=== PATIENT | male | born 1980 | race Caucasian/White ===

== ENCOUNTER 2016-08-22 13:59 | Emergency (ER) | payer OTHER ==
[~2016-08-22] VITALS: Ht 182.9 cm; Wt 77.2 kg
[2016-08-22 14:11] VITALS: BP 104/66; PULSE 69; RESP 18; TEMP 98.7; O2SAT 97
--- NOTE | 2016-08-22 14:31 | PD ---
HPI Chief Complaint: Syncope/Near-Syncope Time Seen by Provider: 14:13 Travel History International Travel<30 days: No Contact w/Intl Traveler<30days: No Traveled to known affect area: No History of Present Illness HPI This is a 36 year old male who presents to the emergency department with syncope. Pt. reports that he ate pizza and on his way to the bathroom the patient felt queasy and passed out, hitting his head and his back, and was unresponsive for 1-2 minutes. After he awoke he seemed confused for 30 minutes per EVAC. Pt. currently feels back to normal except for a severe headache /, throbbing. Pt's father had an aneurysm at 50 years old. Pt. is currently on a road trip from [place]. [facility] Past Medical History Medical History: Denies Significant Hx Past Surgical History Surgical History: No Previous Surgery Social History Alcohol Use: No Tobacco Use: Yes (1 04/14 PPD) Substance Use: No Allergies-Medications (Allergen,Severity, Reaction): Coded Allergies: No Known Allergies (Unverified , 08/22/16) Reported Meds & Prescriptions Reported Meds & Active Scripts Active No Active Prescriptions or Reported Medications Review of Systems Except as stated in HPI: all other systems reviewed are Neg Physical Exam Narrative GENERAL: SKIN: Diaphoretic HEAD: Atraumatic. Normocephalic. EYES: Pupils equal and round. No injection or drainage. ENT: Moist mucous membranes NECK: Trachea midline. CARDIOVASCULAR: Regular rate and rhythm. No murmur appreciated. RESPIRATORY: Clear to auscultation. Breath sounds equal bilaterally. GASTROINTESTINAL: Abdomen soft, non-tender, nondistended. MUSCULOSKELETAL: No obvious deformities. NEUROLOGICAL: Awake and alert. No obvious cranial nerve deficits. No dysarthria or aphasia. No upper or lower extremity drift. No upper extremity ataxia. Visual rey intact. PSYCHIATRIC: Appropriate mood and affect; insight and judgment normal. Data Data Last Documented VS Vital Signs Date Time Temp Pulse Resp B/P Pulse Ox O2 Delivery O2 Flow Rate FiO2 08/22/16 14:15 75 18 97 Room Air 08/22/16 14:11 98.7 104/66 Orders Sodium Chlor 0.9% 1000 Ml Inj (Ns 1000 M (08/22/16 14:45) Complete Blood Count With Diff (08/22/16 14:31) Comprehensive Metabolic Panel (08/22/16 14:31) Electrocardiogram (08/22/16 ) Ct Brain W/O Iv Contrast(Rout) (08/22/16 ) Acetaminophen (Tylenol) (08/22/16 15:00) Labs Laboratory Tests Test 08/22/16 14:40 White Blood Count 7.8 TH/MM3 Red Blood Count 4.66 MIL/MM3 Hemoglobin 13.9 GM/DL Hematocrit 40.6 % Mean Corpuscular Volume 87.1 FL Mean Corpuscular Hemoglobin 29.9 PG Mean Corpuscular Hemoglobin 34.4 % Concent Red Cell Distribution Width 13.4 % Platelet Count 223 TH/MM3 Mean Platelet Volume 8.5 FL Neutrophils (%) (Auto) 66.8 % Lymphocytes (%) (Auto) 25.6 % Monocytes (%) (Auto) 4.9 % Eosinophils (%) (Auto) 2.1 % Basophils (%) (Auto) 0.6 % Neutrophils # (Auto) 5.2 TH/MM3 Lymphocytes # (Auto) 2.0 TH/MM3 Monocytes # (Auto) 0.4 TH/MM3 Eosinophils # (Auto) 0.2 TH/MM3 Basophils # (Auto) 0.0 TH/MM3 CBC Comment DIFF FINAL Differential Comment Sodium Level 139 MEQ/L Potassium Level 3.3 MEQ/L Chloride Level 104 MEQ/L Carbon Dioxide Level 25.8 MEQ/L Anion Gap 9 MEQ/L Blood Urea Nitrogen 18 MG/DL Creatinine 1.14 MG/DL Estimat Glomerular Filtration 73 ML/MIN Rate Random Glucose 143 MG/DL Calcium Level 9.0 MG/DL Total Bilirubin 0.4 MG/DL Aspartate Amino Transf 21 U/L (AST/SGOT) Alanine Aminotransferase 22 U/L (ALT/SGPT) Alkaline Phosphatase 106 U/L Total Protein 7.0 GM/DL Albumin 4.0 GM/DL [facility] Medical Decision Making Medical Screen Exam Complete: Yes Emergency Medical Condition: Yes Interpretation(s) afebrile, no tachycardia, normotensive No leukocytosis Mild hypokalemia CT head: No intracranial hemorrhage Differential Diagnosis Subarachnoid hemorrhage, arrhythmia, electrolyte abnormality, dehydration Narrative Course This is a 36-year-old male who presents to the emergency department having had an episode of syncope following eating pizza. He said he felt like he had to vomit and then he passed out. I suspect he ingested some sort of preformed toxin immediately after eating based on his description of symptoms however the patient did develop a headache after his syncope, and his father had a history of aneurysm. He was placed on a monitor and an IV was established. Labs are reassuring. He has a normal neurologic exam. CT imaging was performed which was reassuring. I think given CT imaging was performed within 2 hours of the onset of the patient's symptoms this is reliable to exclude subarachnoid hemorrhage. I also have a low suspicion for subarachnoid hemorrhage given the patient's onset of headache was following syncope, and his headache is mild. I think patient is safe for discharge. Diagnosis Primary Impression: Syncope Qualified Code: R55 - Syncope, unspecified syncope type Patient Instructions: General Instructions Additional Instructions: If you develop severe chest pain, shortness of breath, sweating, lightheadedness , dizziness or difficulty breathing return to the emergency department immediately. Followup with your primary care physician in 2-3 days if your symptoms are not resolved. Med/Other Pt SpecificInfo: No Change to Meds Scripts No Active Prescriptions or Reported Meds Disposition: 01 DISCHARGE HOME Condition: Stable Clau Davis MD August 22, 2016 14:31
[2016-08-22] MEDS ORDERED: SODIUM CHLOR 0.9% 1000 ML INJ 1,000 ML IV ONE (14:45)
[2016-08-22] MEDS ORDERED: ACETAMINOPHEN 500 MG CPLT PO ONE (15:00)
[2016-08-22 15:08] LABS: AUTOMATED NEUTROPHIL # 5.2 TH/MM3 (1.8-7.7); BASOPHIL % 0.6 % (0.0-2.0); EOSINOPHIL # 0.2 TH/MM3 (0-0.4); EOSINOPHIL % 2.1 % (0.0-4.0); HEMATOCRIT 40.6 % (39.0-51.0); HEMO FLAGS DIFF FINAL; LYMPH % 25.6 % (9.0-44.0); MEAN CELL VOLUME 87.1 FL (80.0-100.0); MEAN CORPUSCULAR HEMOGLOBIN 29.9 PG (27.0-34.0); MEAN CORPUSCULAR HGB CONC 34.4 % (32.0-36.0); MONO % 4.9 % (0.0-8.0); NEUT % 66.8 % (16.0-70.0); PLATELET COUNT 223 TH/MM3 (150-450); RED BLOOD COUNT 4.66 MIL/MM3 (4.50-5.90); RED CELL DISTRIBUTION WIDTH 13.4 % (11.6-17.2); WHITE BLOOD COUNT 7.8 TH/MM3 (4.0-11.0)
[2016-08-22 15:31] LABS: ALT (GPT) 22 U/L (12-78); ANION GAP 9 MEQ/L (5-15); AST (GOT) 21 U/L (15-37); BICARBONATE 25.8 MEQ/L (21.0-32.0); BLOOD UREA NITROGEN 18 MG/DL (7-18); CHLORIDE 104 MEQ/L (98-107); GLOMERULAR FILTRATION RATE 73 ML/MIN (>89); POTASSIUM 3.3 MEQ/L (3.5-5.1); SODIUM (NA) 139 MEQ/L (136-145)
[2016-08-22 15:33] LABS: ALKALINE PHOSPHATASE 106 U/L (45-117); TOTAL BILIRUBIN ADULT 0.4 MG/DL (0.2-1.0)
--- NOTE | 2016-08-22 16:01 | RADRPT ---
EXAM DATE/TIME: 08/22/2016 15:44 [facility] COMPARISON: No previous studies available for comparison. INDICATIONS : Syncopal episode. RADIATION DOSE: 56.37 CTDIvol (mGy) MEDICAL HISTORY : None SURGICAL HISTORY : None. ENCOUNTER: Initial ACUITY: 1 day PAIN SCALE: 0/10 LOCATION: cranial TECHNIQUE: Multiple contiguous axial images were obtained of the head. Using automated exposure control and adj ustment of the mA and/or kV according to patient size, radiation dose was kept as low as reasonably a chievable to obtain optimal diagnostic quality images. FINDINGS: CEREBRUM: The ventricles are normal for age. No evidence of midline shift, mass lesion, hemorrhage or acute in farction. No extra-axial fluid collections are seen. POSTERIOR FOSSA: The cerebellum and brainstem are intact. The 4th ventricle is midline. The cerebellopontine angle i s unremarkable. EXTRACRANIAL: The visualized portion of the orbits is intact. SKULL: The calvaria is intact. No evidence of skull fracture. CONCLUSION: Normal examination. Shahzad Pressley MD on August 22, 2016 at 15:58 Board Certified Radiologist. This report was verified electronically.
[2016-08-22 17:00] VITALS: BP 107/85
--- NOTE | 2016-08-23 13:30 | EKG ---
Date Performed: 08/22/2016 Time Performed: 14:47:40 PTAGE: 36 years EKG: SINUS BRADYCARDIA WITH SINUS ARRHYTHMIA BORDERLINE ECG NO PREVIOUS TRACING DOCTOR: Kayla Nunez Interpretating Date/Time 08/23/2016 13:28:46
== END 2016-08-22 17:47 | disposition home or self-care (01) ==
LOC: NEPE 13:59
DX: R55 Syncope and collapse (principal); F17.210 Nicotine dependence, cigarettes, uncomplicated; R00.1 Bradycardia, unspecified
CPT/HCPCS: 70450; 80053; 85025; 93005; 99284; J7030